=== PATIENT | female | born 1985 | race Caucasian/White ===

== ENCOUNTER 2017-02-23 12:23 | Inpatient (IN) | payer OTHER ==
[2017-02-23] MEDS ORDERED: Ondansetron 2 mg/mL 2 mL Inj IVPUSH PRN (13:50)
--- NOTE | 2017-02-23 15:07 | PCM.HPMED ---
Subjective Date of Service February 23, 2017 Primary Provider: Admitting Physician: Greg Russo MD Primary Care Physician: Rahat Yoder Attending Physician: Greg Russo MD Chief Complaint: Abdominal pain, nausea and vomiting History of Present Illness: 31 years old with no past medical history presented to urgent care center this morning complaining of nausea, vomiting x 20 times, abdominal pain and unable to tolerate food . Her symptoms started overnight around 1 am . She ate quesadilla for dinner , which she does most night. Vomiting is of stomach content ,there is no blood . Patient denies any recent episodes but 3 years ago she had a similar episode and was diagnosed with pancreatitis . She already had a cholecystectomy at that time. She report a glass of wine or 2 very seldom. Last time she drink were 3 days ago and was limited to a glass of wine. She smokes marihuana daily but denies any other substance use. Patient takes no medications and denies any significant past medical problems. At urgent care patient had labs test done which showed elevated lipase. She continues to vomit and had looks very sick. She was sent to the hospital for direct admission . She denies any fever, chills, chest pain, shortness of breath . Review of Systems: A comprehensive review of systems x 12 points is negative except for nausea, vomiting and abdominal pain as described in history of present illness . 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 HR 75 RR : 12 Exam GEN : NAD , well nourished female. HEENT : VIOLET. Sclerae is anicteric Neck : Supple, no JVD, no carotid bruit Chest : Normal respiratory effort. No chest wall tenderness Lung : Clear bilaterally, no crackles, no wheezing. Heart : S1S2, RRR , no gallop, no murmur Abdomen : Soft, tender on deep palpation at epigastric area. No palpable mass. BS audible all quadrants Ext : No edema, no cyanosis. No calf tenderness Skin: No rah , no ulcers. Neuro : Grossly intact . Lab and Diagnostics Labs LAbs test done at Urgent Care reviewed : BUN 8 Creat : 0.68 K : 3.5 Sodium : 142 Lipase : 211 Albumin : 4.3 wbc : 9.27 H/H : 12.9/40.1 Platelets : 271 Assessment & Plan 1. Acute Pancreatitis 2. Dehydration 3. Nausea and Vomiting Admit to impatient . Start IVF MS @ 100 l/Hr fr hydration . Monitor electrolytes Morphine sulfate 1-2 mg IV Q4H PRN for abdominal pain Zofran 4 mg IV Q4H prn for nausea or vomiting . Obtain CT scan of abdominal with IV contrast. No clear reason of acute pancreatitis. [facility] denies alcohol intake and takes no medications. She had a cholecystectomy some years ago. Obtain lipid profile . Repeat lipase level in AM Heparin for DVT prophylaxis Pain Evaluation: Adequate Pain Control VTE Prophylaxis: Sub-Q Heparin (Unfractionated) Resuscitation Status: CPR: Attempt Resuscitation Time spent 75 minutes Greg Russo MD February 23, 2017 15:07
[2017-02-23] MEDS: 0.9% Sodium Chloride 1,000 ML IV SCH (15:59)
[2017-02-23] MEDS: Ondansetron 2 mg/mL 2 mL Inj IVPUSH PRN ×3 (15:59→22:04)
[2017-02-23 16:33] VITALS: BP 125/70; PULSE 54; RESP 16; O2SAT 99
[2017-02-23] MEDS: Pantoprazole 4 mg/mL 10 mL Inj IVPUSH SCH (17:23)
[2017-02-23] MEDS: HYDROmorphone 1 mg/mL Inj IVPUSH PRN ×2 (17:49→22:05)
--- NOTE | 2017-02-23 18:56 | DRSVH ---
PROCEDURE: CT ABDOMEN AND PELVIS WITH CONTRAST ([id number]) INDICATIONS: 31 year-old female with acute pancreatitis. TECHNIQUE: After the administration of oral and intravenous contrast, 5 mm thick sections acquired from the diap hragms to the symphysis. 5 mm thick coronal and sagittal reformats were performed. For radiation do se reduction, the following was used: automated exposure control, adjustment of mA and/or kV accordi ng to patient size. COMPARISON: None. FINDINGS: Image quality: Excellent. ABDOMEN: Lung bases: Lung bases are clear. Heart size is normal. Solid organs: Liver and spleen are normal in size and enhancement. Gallbladder is surgically absent . Biliary system is non-dilated. Pancreas enhances normally. No adrenal nodules. Kidneys are norm al in size and enhancement, without hydronephrosis. Peritoneum and bowel: Stomach, small bowel, and colon loops are normal in caliber and wall thickness . No free fluid or air. Nodes and vessels: No retroperitoneal or mesenteric adenopathy. Aorta and inferior vena cava are no rmal in caliber. Miscellaneous: No ventral hernias. PELVIS: Genitourinary: Bladder wall thickness is normal. Uterus and ovaries are normal in size. Miscellaneous: No inguinal hernias or adenopathy. Bones: No suspicious bony lesions. No vertebral body compression fractures. IMPRESSION: No CT manifestations of acute pancreatitis, status post cholecystectomy. Dictated by: Agustin Hoover M.D. on 02/23/2017 at 18:45 Approved by: Agustin Hoover M.D. on 02/23/2017 at 18:50
--- NOTE | 2017-02-23 19:31 | NUR ---
Admit Pt arrived to [facility] at 1215 direct admit, notified. Pt arrived in pain and nausea, able to ambulate easily to bed. A&Ox3, oriented to room and call light, pt will call before getting OOB for safety.
--- NOTE | 2017-02-23 20:45 | NUR ---
Pt update Family wanting update of CT result and plan text page unable to come at this time will try later, let pt/fam. know CT appeared negative for pancreatitis will hydrate manage pain/nausea through night
[2017-02-23 21:08] VITALS: BP 134/67; PULSE 36; RESP 18; O2SAT 99
[2017-02-24] MEDS: 0.9% Sodium Chloride 1,000 ML IV SCH (01:40)
[2017-02-24 01:45] VITALS: BP 137/79; PULSE 42; RESP 17; O2SAT 98
[2017-02-24] MEDS: HYDROmorphone 1 mg/mL Inj IVPUSH PRN ×3 (02:39→10:10)
[2017-02-24] MEDS: Ondansetron 2 mg/mL 2 mL Inj IVPUSH PRN ×2 (02:39→08:40)
[2017-02-24 06:33] VITALS: BP 127/65; PULSE 44; RESP 17; O2SAT 99
[2017-02-24 08:03] VITALS: BP 115/47; PULSE 44; RESP 16; O2SAT 99
[2017-02-24 08:39] LABS: Mean Corpuscular Hemoglobin 27.7 pg (27.0-35.0); Mean Corpuscular Volume 83.9 fL (81-100)
[2017-02-24] MEDS: Pantoprazole 4 mg/mL 10 mL Inj IVPUSH SCH (08:40)
--- NOTE | 2017-02-24 09:17 | NUR ---
EKG done, paged as showing bradycardia 45. requesting tele order if he feels approp. Awaiting return call. Addendum: 02/24/17 at 0918 by MINA ADKINS RN new orders received.
[2017-02-24 09:28] VITALS: PULSE 43
--- NOTE | 2017-02-24 10:02 | NUR ---
Social Work- Screening Data: EMR reviewed. Pt is a 31 year old female admitted 02/23/17 for acute pancreatitis per H&P. Pt's insurance is [facility] Healthcare Management Admin and PCP is the [facility]. Pt's readmit risk score is 0. STUDIO SET UP WORKER met with pt at bedside regarding discharge plan, SW role explained. Pt alert and oriented x3. Pt resides in [facility] with her ex- and son. Pt is independent at baseline. Pt has no DPOA on file, STUDIO SET UP WORKER provided paperwork at bedside. STUDIO SET UP WORKER spoke with pt regarding substance use, as H&P states she is "in recovery". Pt denied any concerns related to use, denied using any recovery services pertaining to etoh or illicit substances, stated that she "smokes marijuana but that is the only substance I use." Pt to discharge home with family to transport via POV. STUDIO SET UP WORKER provided phone number and plan on whiteboard. No anticipated discharge needs. SW will continue to follow if needs arise. Assessment: Pt who is independent at baseline. Plan: Pt to discharge home with family to transport via POV. No anticipated discharge needs. SW will continue to follow if needs arise. SELWYN Vallejo
--- NOTE | 2017-02-24 11:04 | PCM.DIMED ---
Discharge Instructions Date of Service February 24, 2017 Dates of Hospitalization February 23, 2017 at 12:23 Discharge Diagnosis Discharge Diagnosis recurrent n/v - likely cyclic vomiting syndrome 2/2 to chronic MJ use low grade elev of lipase Diet No restrictions Activity No restrictions Call your provider Fever or Chills, Shortness of breath Patient Instructions stop smoking marijuana as this is likely the cause of your symptoms. If you stomach pain returns, you may try some over the counter stomach acid medication to see if that helps Follow-up plan please f/u with your primary care physician within 2 wks Follow-up with PCP in: 2 weeks Greg Sexton DO February 24, 2017 11:04
--- NOTE | 2017-02-24 11:12 | PCM.DC.MED ---
Discharge Summary Date of Service February 24, 2017 Dates of Hospitalization Date of Hospital Admission February 23, 2017 at 12:23 Date of Discharge: February 24, 2017 Providers: Admitting Physician: Greg Russo MD Primary Care Physician: Rahat Yoder Attending Physician: Greg Russo MD Diagnosis at Time of Discharge Diagnosis at Time of Discharge recurrent n/v - likely cyclic vomiting syndrome 2/2 to chronic MJ use low grade elev of lipase Procedures XRay, CTs & MRIs Patient Name: MIMI CRANDALL MR#: [id number] Location: [facility] [place] Ordering Phys: Greg Russo MD Date of Service: 02/23/17 1449 PROCEDURE: CT ABDOMEN AND PELVIS WITH CONTRAST ([id number]) INDICATIONS: 31 year-old female with acute pancreatitis. TECHNIQUE: After the administration of oral and intravenous contrast, 5 mm thick sections acquired from the diaphragms to the symphysis. 5 mm thick coronal and sagittal reformats were performed. For radiation dose reduction, the following was used : automated exposure control, adjustment of mA and/or kV according to patient size. COMPARISON: None. FINDINGS: Image quality: Excellent. ABDOMEN: Lung bases: Lung bases are clear. Heart size is normal. Solid organs: Liver and spleen are normal in size and enhancement. Gallbladder is surgically absent. Biliary system is non-dilated. Pancreas enhances normally. No adrenal nodules. Kidneys are normal in size and enhancement, without hydronephrosis. Peritoneum and bowel: Stomach, small bowel, and colon loops are normal in caliber and wall thickness. No free fluid or air. Nodes and vessels: No retroperitoneal or mesenteric adenopathy. Aorta and inferior vena cava are normal in caliber. Miscellaneous: No ventral hernias. PELVIS: Genitourinary: Bladder wall thickness is normal. Uterus and ovaries are normal in size. Miscellaneous: No inguinal hernias or adenopathy. Bones: No suspicious bony lesions. No vertebral body compression fractures. IMPRESSION: No CT manifestations of acute pancreatitis, status post cholecystectomy. Dictated by: Agustin Hoover M.D. on 02/23/2017 at 18:45 Brief History 31 years old with no past medical history presented to urgent care center this morning complaining of nausea, vomiting x 20 times, abdominal pain and unable to tolerate food . Her symptoms started overnight around 1 am . She ate quesadilla for dinner , which she does most night. Vomiting is of stomach content ,there is no blood . Patient denies any recent episodes but 3 years ago she had a similar episode and was diagnosed with pancreatitis . She already had a cholecystectomy at that time. She report a glass of wine or 2 very seldom. Last time she drink were 3 days ago and was limited to a glass of wine. She smokes marihuana daily but denies any other substance use. Patient takes no medications and denies any significant past medical problems. At urgent care patient had labs test done which showed elevated lipase. She continues to vomit and had looks very sick. She was sent to the hospital for direct admission . She denies any fever, chills, chest pain, shortness of breath . Hospital Course 1. Nausea and Vomiting likley 2/2 cyclic vomiting syndrome, given pts chronic frequent use. -pt had some sinus bradycardia while lying down - nl HR response with ambulation -pt encouraged to increase PO hydration for a goal and f/u with PCP in 2 wks. -pt to call PCP or go to ER if having any f/c/dizziness 2. Dehydration Admit to inpatient . s/p IVF MS @ 100 l/Hr fr hydration- no d/c . labs ok during hospitalization. at the time of discharge pt was hemodynamically stable with adequate oxygenation - and if able to ambulate wihtout lightheadedness ok to dc Morphine sulfate 1-2 mg IV Q4H PRN for abdominal pain during hospital stay Zofran 4 mg IV Q4H prn for nausea or vomiting. CT scan of abdominal with IV contrast w/out e/o pancreatitis neg test Patient denies alcohol intake and takes no medications. She had a cholecystectomy some years ago. Exam Vital Signs (Last) Date Time Temp Pulse Resp B/P Pulse Ox O2 Delivery O2 Flow Rate FiO2 02/24/17 09:28 43 02/24/17 08:03 37.0 16 115/47 99 Room Air Exam GEN : NAD , well nourished female. HEENT : VIOLET. Sclerae is anicteric Neck : Supple, no JVD, no carotid bruit Chest : Normal respiratory effort. No chest wall tenderness Lung : Clear bilaterally, no crackles, no wheezing. Heart : S1S2, RRR , no gallop, no murmur Abdomen : Soft, tender on deep palpation at epigastric area. No palpable mass. BS audible all quadrants, no rebound or peritoneal sx Ext : No edema, no cyanosis. No calf tenderness Skin: No rah , no ulcers. Neuro : Grossly intact . Test 02/23/17 16:14 02/24/17 08:26 HCG Beta Subunit < 0.500mIU/mL White Blood Count 7.1th/mm3 (3.8-10.1) Red Blood Count 4.40mil/mm3 (3.90-5.20) Hemoglobin 12.2g/dL (12.0-15.6) Hematocrit 36.9% (35.0-46.0) Mean Corpuscular Volume 83.9fL (81-100) Mean Corpuscular Hemoglobin 27.7pg (27.0-35.0) Mean Corpuscular Hemoglobin Concent 33.1% (32.0-37.0) Red Cell Distribution Width 13.8% (12.3-15.4) Platelet Count 233bil/L (150-400) Sodium Level 141mEq/L (134-144) Potassium Level 3.7mEq/L (3.5-5.2) Chloride Level 107mEq/L (97-108) Carbon Dioxide Level 22mmol/L (18-29) Blood Urea Nitrogen 7mg/dL (6-20) Creatinine 0.63mg/dL (0.57-1.00) Estimat Glomerular Filtration Rate 157mL/min (>59) Glucose Level 99mg/dL (60-99) Calcium Level 8.9mg/dL (8.5-10.1) Total Bilirubin 0.5mg/dL (0.0-1.2) Aspartate Amino Transf (AST/SGOT) 14U/L (0-50) Alanine Aminotransferase (ALT/SGPT) 10U/L (0-32) Alkaline Phosphatase 52U/L (25-150) Total Protein 6.0g/dL (6.4-8.4) Albumin 3.6g/dL (3.4-5.0) Triglycerides Level 88mg/dL (0-149) Cholesterol Level 182mg/dL (100-199) LDL Cholesterol, Calculated 116.400mg/dL (0-99) VLDL Cholesterol 17.600mg/dL HDL Cholesterol 48mg/dL (>39) Cholesterol/HDL Ratio 3.79 (0.0-4.4) Lipase 18U/L (13-60) Discharge Medications No Active Prescriptions or Reported Meds Followup Plan Follow-up plan please f/u with your primary care physician within 2 wks Discharge Diet: No restrictions Discharge Activity: No restrictions Patient Instructions stop smoking marijuana as this is likely the cause of your symptoms. If you stomach pain returns, you may try some over the counter stomach acid medication to see if that helps Follow-up with PCP in: 2 weeks Time spent 34 minutes spent with jos and Greg Guardado DO February 24, 2017 11:12
--- NOTE | 2017-02-24 11:17 | NUR ---
Social Work- Discharge Data: EMR reviewed. Pt is a 31 year old female admitted 02/23/17 for acute pancreatitis per H&P. Pt to discharge today, orders are active. Pt to discharge home with family to transport via POV. No discharge needs. Assessment: Pt who is independent at baseline. Plan: Pt to discharge home with family to transport via POV. No discharge needs. SELWYN Vallejo
[2017-02-24 11:35] VITALS: BP_SYST 121; BP_SYST 135; BP_DIAS 69; BP_DIAS 73; PULSE 42
--- NOTE | 2017-02-24 12:46 | NUR ---
Discharge note- Patient complained of nausea this am relieved with Zofran IV. Patient also complained of abd. pain and ordered pain med given. Patient's heart rate 40's at rest. Sinus Jeffrey. Ortho BP done and documented. Heart rate went from 40-70's with ambulation. Patient denies dizziness or any other complaints with activity. Denies further nausea and pain. Discharged to home with family and personal belongings.
== END 2017-02-24 12:25 | disposition home or self-care (01) | DRG 641 ==
LOC: MOC 12:23
PROVIDERS: ADMIT Internal Medicine; ATTEND Internal Medicine
DX: E86.0 Dehydration (principal); R11.2 Nausea with vomiting, unspecified; F12.929 Cannabis use, unspecified with intoxication, unspecified; F17.200 Nicotine dependence, unspecified, uncomplicated